=== PATIENT | female | born 1970 | race American Indian/Alaskan Native ===

== ENCOUNTER 2017-10-31 17:22 | Emergency (ER) | payer MEDICAID, OTHER ==
[2017-10-31] MEDS ORDERED: hydrOXYzine HCl 25 MG Tab PO ONE ×2 (17:23→20:45)
[2017-10-31 19:01] VITALS: BP 146/85
[2017-10-31 20:41] LABS: CHLORIDE,CL 101 mmol/L (101-111); SODIUM,NA 136 mmol/L (135-145)
--- NOTE | 2017-10-31 20:53 | EDM.PDOC ---
ED HPI GENERAL MEDICAL PROBLEM - General Chief Complaint: Neuro Symptoms/Deficits Stated Complaint: domenica hughes [id number] Time Seen by Provider: 10/31/17 20:00 Source of Information: Reports: Patient History Limitations: Reports: No Limitations - History of Present Illness INITIAL COMMENTS - FREE TEXT/NARRATIVE: ED with boyfriend, complains of tingling sensation around lips, hands and down anterior portion of legs noted onset last flores. Has been constant but notes does not seem to notice it as much at times. Admits similar symptoms with anxiety. Had been on meds for at anxiety at different times. Recent abstinence from alcohol for past 3 weeks. Has not noted any weakness. No fever or chills. - Related Data Allergies Allergy/AdvReac Type Severity Reaction Status Date / Time No Known Allergies Allergy Verified 10/31/17 17:50 Home Meds: Home Meds Aspirin [Ecotrin] 325 mg PO DAILY 10/31/17 [History] Past Medical History - Past Health History Medical/Surgical History: Denies Medical/Surgical History Social & Family History - Family History Family Medical History: Noncontributory - Tobacco Use Smoking Status *Q: Current Every Day Smoker Years of Tobacco use: 24 Packs/Tins Daily: 1 Second Hand Smoke Exposure: Yes - Caffeine Use Caffeine Use: Reports: Coffee - Alcohol Use Days Per Week of Alcohol Use: 7 Number of Drinks Per Day: 3 Total Drinks Per Week: 21 - Recreational Drug Use Recreational Drug Use: No ED ROS GENERAL - Review of Systems Review Of Systems: ROS reveals no pertinent complaints other than HPI. ED EXAM, NEURO - Physical Exam Exam: See Below Exam Limited By: No Limitations General Appearance: Alert, No Apparent Distress (laughing and talking with friend) Ears: Normal External Exam Nose: Normal Inspection Throat/Mouth: Normal Inspection, Normal Lips (no swelling), Normal Oropharynx, Normal Voice, No Airway Compromise. No: Inflammation Head Exam: Atraumatic, Normocephalic Neck: Normal Inspection, Full Range of Motion Respiratory/Chest: No Respiratory Distress, Wheezing (fine end expiratory bilaterally) Cardiovascular: Normal Peripheral Pulses, Regular Rate, Rhythm, No Edema GI/Abdominal: Normal Bowel Sounds, Soft, Non-Tender Neurological: Alert, Normal Dorsiflexion, CN II-XII Intact, Normal Gait, Normal Reflexes, No Motor/Sensory Deficits, Oriented x 3. No: Abnormal Sensation Extremities: Normal Inspection Psychiatric: Anxious Skin Exam: Warm, Dry, Intact, Normal Color Course - Vital Signs Last Recorded V/S: Last Vital Signs Temp 98.6 F 10/31/17 17:30 Pulse 98 10/31/17 18:57 Resp 20 10/31/17 18:57 BP 146/85 H 10/31/17 18:57 Pulse Ox 99 10/31/17 18:57 - Orders/Labs/Meds Orders: Active Orders 24 hr Category Date Time Status DRUG SCREEN URINE BIORAD [URCHEM] Stat Lab 10/31/17 20:19 Ordered UA W/MICROSCOPIC [URIN] Stat Lab 10/31/17 20:19 Ordered Labs: Laboratory Tests 10/31/17 10/31/17 10/31/17 Range/Units 17:33 20:15 20:15 WBC 11.2 H (5.0-10.0) 10^3/uL RBC 5.34 (4.2-5.4) 10^6/uL Hgb 16.5 H (12.0-16.0) g/dL Hct 48.2 H (37.0-47.0) % MCV 90.3 (80-100) fL MCH 30.9 (27.0-34.0) pg MCHC 34.2 (33.0-35.0) g/dL Plt Count 181 D (150-450) 10^3/uL Neut % (Auto) 78.3 H (42.2-75.2) % Lymph % (Auto) 12.4 L (20.5-50.1) % Norman % (Auto) 8.5 H (2-8) % Eos % (Auto) 0.7 L (1.0-3.0) % Baso % (Auto) 0.1 (0.0-1.0) % Sodium 136 (135-145) mmol/L Potassium 4.2 (3.6-5.0) mmol/L Chloride 101 (101-111) mmol/L Carbon Dioxide 26.0 (21.0-31.0) mmol/L Anion Gap 13.2 BUN 5 L (7-18) mg/dL Creatinine 0.5 L (0.6-1.3) mg/dL Est Cr Clr Drug Dosing 120.11 mL/min Estimated GFR (MDRD) > 60 BUN/Creatinine Ratio 10.00 Glucose 94 (74-105) mg/dL POC Glucose 170 H (70-105) mg/dl Calcium 9.8 (8.4-10.2) mg/dl Magnesium 2.0 (1.8-2.5) mg/dL Total Bilirubin 0.7 (0.2-1.0) mg/dL AST 47 H (10-42) IU/L ALT 45 (10-60) IU/L Alkaline Phosphatase 100 (42-121) IU/L Total Protein 7.7 (6.7-8.2) g/dl Albumin 4.5 (3.2-5.5) g/dl Globulin 3.2 Albumin/Globulin Ratio 1.41 Urine Color (YELLOW) Urine Appearance (CLEAR) Urine pH (5.0-9.0) Ur Specific [place] (1.005-1.030) Urine Protein (NEGATIVE) Urine Glucose (UA) (NEGATIVE) Urine Ketones (NEGATIVE) Urine Occult Blood (NEGATIVE) Urine Nitrite (NEGATIVE) Urine Bilirubin (NEGATIVE) Urine Urobilinogen (0.2-1.0) mg/dL Ur Leukocyte Esterase (NEGATIVE) Urine RBC /HPF Urine WBC (0-5/HPF) /HPF Ur Epithelial Cells /HPF Urine Bacteria (0-FEW/HPF) /HPF Urine Opiates Screen (NEGATIVE) Ur Oxycodone Screen (NEGATIVE) Urine Methadone Screen (NEGATIVE) Ur Barbiturates Screen (NEGATIVE) U Tricyclic Antidepress (NEGATIVE) Ur Phencyclidine Scrn (NEGATIVE) Ur Amphetamine Screen (NEGATIVE) U Methamphetamines Scrn (NEGATIVE) Urine MDMA Screen (NEGATIVE) U Benzodiazepines Scrn (NEGATIVE) Urine Cocaine Screen (NEGATIVE) U Marijuana (THC) Screen (NEGATIVE) 10/31/17 10/31/17 Range/Units 20:19 20:19 WBC (5.0-10.0) 10^3/uL RBC (4.2-5.4) 10^6/uL Hgb (12.0-16.0) g/dL Hct (37.0-47.0) % MCV (80-100) fL MCH (27.0-34.0) pg MCHC (33.0-35.0) g/dL Plt Count (150-450) 10^3/uL Neut % (Auto) (42.2-75.2) % Lymph % (Auto) (20.5-50.1) % Norman % (Auto) (2-8) % Eos % (Auto) (1.0-3.0) % Baso % (Auto) (0.0-1.0) % Sodium (135-145) mmol/L Potassium (3.6-5.0) mmol/L Chloride (101-111) mmol/L Carbon Dioxide (21.0-31.0) mmol/L Anion Gap BUN (7-18) mg/dL Creatinine (0.6-1.3) mg/dL Est Cr Clr Drug Dosing mL/min Estimated GFR (MDRD) BUN/Creatinine Ratio Glucose (74-105) mg/dL POC Glucose (70-105) mg/dl Calcium (8.4-10.2) mg/dl Magnesium (1.8-2.5) mg/dL Total Bilirubin (0.2-1.0) mg/dL AST (10-42) IU/L ALT (10-60) IU/L Alkaline Phosphatase (42-121) IU/L Total Protein (6.7-8.2) g/dl Albumin (3.2-5.5) g/dl Globulin Albumin/Globulin Ratio Urine Color Light yellow (YELLOW) Urine Appearance Clear (CLEAR) Urine pH 7.0 (5.0-9.0) Ur Specific [place] <= 1.005 (1.005-1.030) Urine Protein Negative (NEGATIVE) Urine Glucose (UA) Negative (NEGATIVE) Urine Ketones Negative (NEGATIVE) Urine Occult Blood Negative (NEGATIVE) Urine Nitrite Negative (NEGATIVE) Urine Bilirubin Negative (NEGATIVE) Urine Urobilinogen 0.2 (0.2-1.0) mg/dL Ur Leukocyte Esterase Negative (NEGATIVE) Urine RBC 0-5 /HPF Urine WBC 0-5 (0-5/HPF) /HPF Ur Epithelial Cells Few /HPF Urine Bacteria Few (0-FEW/HPF) /HPF Urine Opiates Screen Negative (NEGATIVE) Ur Oxycodone Screen Negative (NEGATIVE) Urine Methadone Screen Negative (NEGATIVE) Ur Barbiturates Screen Negative (NEGATIVE) U Tricyclic Antidepress Negative (NEGATIVE) Ur Phencyclidine Scrn Negative (NEGATIVE) Ur Amphetamine Screen Negative (NEGATIVE) U Methamphetamines Scrn Negative (NEGATIVE) Urine MDMA Screen Negative (NEGATIVE) U Benzodiazepines Scrn Negative (NEGATIVE) Urine Cocaine Screen Negative (NEGATIVE) U Marijuana (THC) Screen Negative (NEGATIVE) Meds: Medications Discontinued Medications Generic Name Dose Route Start Last Admin Trade Name Coral PRN Reason Stop Dose Admin Hydroxyzine HCl 25 mg 10/31/17 20:45 10/31/17 20:54 Atarax PO 10/31/17 20:46 25 mg ONETIME ONE Administration Hydroxyzine HCl Confirm 10/31/17 21:00 10/31/17 21:04 Atarax Administered 10/31/17 21:01 Not Given Dose 100 mg .ROUTE .STK-MED ONE Departure - Departure Time of Disposition: 20:50 Disposition: Home, Self-Care 01 Condition: Good Clinical Impression: Anxiety - Discharge Information Instructions: Generalized Anxiety Disorder, Adult Forms: ED Department Discharge Additional Instructions: rest , light activity hydroxyzine 25mg one every 6 hours as needed #4 follow up if symptoms worsen - My Orders Last 24 Hours: My Active Orders 10/31/17 20:19 DRUG SCREEN URINE BIORAD [URCHEM] Stat UA W/MICROSCOPIC [URIN] Stat - Assessment/Plan Last 24 Hours: My Active Orders 10/31/17 20:19 DRUG SCREEN URINE BIORAD [URCHEM] Stat UA W/MICROSCOPIC [URIN] Stat
[2017-10-31] MEDS ORDERED: hydrOXYzine HCl 25 MG Tab ONE (21:00)
== END 2017-10-31 21:04 | disposition home or self-care (01) ==
LOC: DL.ED 17:22
DX: F41.9 Anxiety disorder, unspecified (principal); F17.210 Nicotine dependence, cigarettes, uncomplicated; Z79.82 Long term (current) use of aspirin
CPT/HCPCS: 36415; 80053; 80305; 81001; 82962; 83735; 85025; 99284; A9270

== ENCOUNTER 2018-11-08 20:44 | Emergency (ER) | payer SELFPAY ==
[2018-11-08 21:09] VITALS: BP 118/76
[2018-11-08] MEDS ORDERED: Diphtheria,Pertussis(Acell),Tetanus Vaccine 0.5 ML SDV IM ONE (21:49)
[2018-11-08] MEDS ORDERED: Lidocaine 1% 30 ML SDV INJECT ONE (21:49)
--- NOTE | 2018-11-08 21:54 | EDM.PDOC ---
ED HPI GENERAL MEDICAL PROBLEM - General Chief Complaint: Laceration Stated Complaint: CUT TO LEFT RING FINGER Time Seen by Provider: 11/08/18 21:50 Source of Information: Reports: Patient History Limitations: Reports: No Limitations - History of Present Illness INITIAL COMMENTS - FREE TEXT/NARRATIVE: cut on dresser BUTCHER HEAD Left Hand Pain Score (Numeric/FACES): 5 - Related Data Allergies Allergy/AdvReac Type Severity Reaction Status Date / Time No Known Allergies Allergy Verified 11/08/18 21:05 Home Meds: Home Meds . [No Known Home Meds] 11/08/18 [History] Past Medical History - Past Health History Medical/Surgical History: Denies Medical/Surgical History [employer] History: Reports: Psychiatric History: Reports: Anxiety - Past Surgical History GI Surgical History: Reports: Cholecystectomy Social & Family History - Family History Family Medical History: Noncontributory - Tobacco Use Smoking Status *Q: Current Every Day Smoker Years of Tobacco use: 30 Packs/Tins Daily: 2 - Caffeine Use Caffeine Use: Reports: Coffee - Recreational Drug Use Recreational Drug Use: No ED ROS GENERAL - Review of Systems Review Of Systems: ROS reveals no pertinent complaints other than HPI. ED EXAM, SKIN/RASH Exam: See Below Exam Limited By: No Limitations General Appearance: Alert, WD/WN, No Apparent Distress Ears: Hearing Grossly Normal Throat/Mouth: Normal Voice, No Airway Compromise Head: Atraumatic Neck: Non-Tender, Full Range of Motion Respiratory/Chest: No Respiratory Distress Cardiovascular: Regular Rate, Rhythm GI/Abdominal: Soft, Non-Tender Extremities: Other (left 4th pad lac) Neurological: Alert, Oriented, Normal Cognition, Normal Gait, No Motor/Sensory Deficits Psychiatric: Normal Affect, Normal Mood Skin: Warm, Dry, Normal Color Location, Skin: Upper Extremity, Right Lymphatic: No Adenopathy ED SKIN PROCEDURES - Laceration/Wound Repair Left Digit - 4th (Ring) Lac/Wound length In cm: 1.5 (pad of left 4th finger) Appearance: Subcutaneous, Irregular, Clean Distal NVT: Neuro & Vascular Intact, No Tendon Injury Local Anesthesia - Lidocaine (Xylocaine): 1% Plain Local Anesthetic Volume: 5cc Skin Prep: Chlorhexidine (Hibiciens) Saline Irrigation (cc's): 20 Exploration/Debridement/Repair: Wound Explored, In a Bloodless Field, No Foreign Material Found Closed with: Sutures Suture Size: 4-0 Suture Type: Nylon, Interrupted Sterile Dressing Applied: Provider Tetanus Status Addressed: Yes Complications: No Course - Vital Signs Last Recorded V/S: Last Vital Signs Temp 36.1 C 11/08/18 21:06 Pulse 69 11/08/18 21:06 Resp 16 11/08/18 21:06 BP 118/76 11/08/18 21:06 Pulse Ox 99 11/08/18 21:06 - Orders/Labs/Meds Orders: Active Orders 24 hr Category Date Time Status Vaccines to be Administered [RC] PER UNIT ROUTINE Care 11/08/18 21:50 Active Meds: Medications Discontinued Medications Generic Name Dose Route Start Last Admin Trade Name Freq PRN Reason Stop Dose Admin Diphtheria/Tetanus/Acell Pertussis 0.5 ml 11/08/18 21:49 11/08/18 22:02 Adacel IM 11/08/18 21:50 0.5 ml .ONCE ONE Administration Lidocaine HCl 30 ml 11/08/18 21:49 11/08/18 22:02 Xylocaine-Mpf 1% INJECT 11/08/18 21:50 30 ml ONETIME ONE Administration Departure - Departure Time of Disposition: 22:12 Disposition: Home, Self-Care 01 Condition: Good Clinical Impression: Finger laceration Qualifiers: Encounter type: initial encounter Finger: ring finger Damage to nail status: without damage Foreign body presence: without foreign body Laterality: left Qualified Code(s): S61.215A - Laceration without foreign body of left ring finger without damage to nail, initial encounter - Discharge Information Instructions: Sutured Wound Care, [facility] Forms: ED Department Discharge Additional Instructions: 1) keep wound clean dry covered 2) wound check if looks infected 3) suture removal 10 days - My Orders Last 24 Hours: My Active Orders 11/08/18 21:50 Vaccines to be Administered [RC] PER UNIT ROUTINE - Assessment/Plan Last 24 Hours: My Active Orders 11/08/18 21:50 Vaccines to be Administered [RC] PER UNIT ROUTINE
== END 2018-11-08 22:25 | disposition home or self-care (01) ==
LOC: DL.ED 20:44
DX: S61.215A Laceration without foreign body of left ring finger without damage to nail, initial encounter (principal); F17.210 Nicotine dependence, cigarettes, uncomplicated; W26.8XXA Contact with other sharp object(s), not elsewhere classified, initial encounter; Z23 Encounter for immunization
CPT/HCPCS: 12001; 90471; 90715; 99282; J2001

== ENCOUNTER 2021-02-25 09:38 | Inpatient (IN) | payer MEDICAID ==
[2021-02-25] MEDS ORDERED: Sodium Chloride 0.9% 10 ML Syringe FLUSH PRN ×2 (09:49→11:57)
[2021-02-25] MEDS ORDERED: Ondansetron 4 MG/2 ML SDV IV ONE (09:51)
[2021-02-25] MEDS ORDERED: MVI, Adult with Vitamin K 10 ML, Thiamine 100 MG, Folic Acid 1 MG in Lactated Ringers 1... IV ONE ×4 (09:51)
[2021-02-25] MEDS ORDERED: LORazepam 2 MG/ML SDV IVPUSH ONE ×2 (09:51→10:54)
[2021-02-25 10:18] LABS: AMPHETAMINES,URINE NEGATIVE (NEGATIVE); BARBITURATES,URINE NEGATIVE (NEGATIVE); BENZODIAZEPINE,URINE NEGATIVE (NEGATIVE); MDMA (ECSTASY), URINE NEGATIVE (NEGATIVE); METHADONE,URINE NEGATIVE (NEGATIVE); METHAMPHETAMINES,URINE NEGATIVE (NEGATIVE); OPIATES,URINE NEGATIVE (NEGATIVE); OXYCODONE,URINE NEGATIVE (NEGATIVE); PHENCYCLIDINE,URINE NEGATIVE (NEGATIVE); TCA,URINE NEGATIVE (NEGATIVE)
[2021-02-25 10:29] LABS: PTT,PARTIAL THROMBOPLSTIN TIME 25.6 SEC (22.0-34.0)
[2021-02-25 10:31] LABS: ANION GAP 14.4 mEq/L (7-13); CHLORIDE,CL 99 mmol/L (98-107); SODIUM,NA 137 mmol/L (136-145)
[2021-02-25 10:40] LABS: HEMOGLOBIN A1C 5.1 % (<5.7)
[2021-02-25 10:52] LABS: CORONAVIRUS COVID-19 NAA NEGATIVE (NEGATIVE)
[2021-02-25] MEDS ORDERED: Pantoprazole 40 MG Vial IVPUSH ONE (10:53)
--- NOTE | 2021-02-25 11:09 | EDM.PDOC ---
Scribed by Terese Navarro 02/25/21 1033 for Rahat Carpio MD ED HPI GENERAL MEDICAL PROBLEM - General Chief Complaint: General Stated Complaint: AMBULANCE Time Seen by Provider: 02/25/21 09:39 Source of Information: Reports: Patient, EMS, EMS Notes Reviewed, RN, RN Notes Reviewed History Limitations: Reports: No Limitations - History of Present Illness INITIAL COMMENTS - FREE TEXT/NARRATIVE: Patient arrives to ED by [facility] with complaint of shakiness, nausea and alcohol withdrawal. She has chronically drank an 8 pack of beer every morning and an 8 pack every evening. Last night she decided to stop alcohol. Awoke this morning with the above symptoms. She has had alcohol withdrawal at least once in the past and went to treatment several years ago. Denies history of withdrawal seizures. Patient also states she has head lice, which she has not gotten around to treating yet. Onset: Today Duration: Constant Location: Reports: Generalized Quality: Reports: Ache Severity: Moderate Improves with: Reports: None Worsens with: Reports: None Associated Symptoms: Reports: No Other Symptoms - Related Data Allergies Allergy/AdvReac Type Severity Reaction Status Date / Time No Known Allergies Allergy Verified 11/08/18 21:05 Home Meds: Home Meds . 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 ED EXAM, GENERAL - Physical Exam Exam: See Below Exam Limited By: No Limitations General Appearance: Alert, WD/WN, No Apparent Distress Eye Exam: Bilateral Eye: EOMI, Normal Inspection, PERRL Nose: Normal Inspection, Normal Mucosa, No Blood Throat/Mouth: Normal Lips, Normal Voice, No Airway Compromise Head: Atraumatic, Normocephalic, Other (Visible active head lice) Neck: Normal Inspection, Supple, Non-Tender, Full Range of Motion Respiratory/Chest: No Respiratory Distress, Lungs Clear, Normal Breath Sounds, No Accessory Muscle Use, Chest Non-Tender Cardiovascular: Regular Rate, Rhythm, No Edema, Tachycardia GI/Abdominal: Normal Bowel Sounds, Soft, Non-Tender, Hepatomegaly. No: Guarding, Rigid, Rebound Back Exam: Normal Inspection Extremities: Normal Inspection Neurological: Alert, Oriented, Normal Cognition, No Motor/Sensory Deficits, Other (Tremor) Psychiatric: Normal Mood Skin Exam: Warm, Dry, Intact, Normal Color, No Rash Course - Vital Signs Last Recorded V/S: Last Vital Signs Temp 99.1 F 02/25/21 10:25 Pulse 112 H 02/25/21 10:25 Resp 18 02/25/21 10:25 BP 157/139 H 02/25/21 10:25 Pulse Ox 99 02/25/21 10:25 - Orders/Labs/Meds Orders: Active Orders 24 hr Category Date Time Status Peripheral IV Care [RC] . DIRECTED Care 02/25/21 09:49 Active Sodium Chloride 0.9% [Saline Flush] Med 02/25/21 09:49 Active 10 ml FLUSH ASDIRECTED PRN Peripheral IV Insertion Adult [OM.PC] Stat Oth 02/25/21 09:49 Ordered Medication Orders Sodium Chloride (Sodium Chloride 0.9% 10 Ml Syringe) 10 ml FLUSH ASDIRECTED PRN PRN Reason: Keep Vein Open Last Admin: 02/25/21 10:18 Dose: 10 ml Documented by: QUIN Labs: Laboratory Tests 02/25/21 02/25/21 02/25/21 Range/Units 09:53 09:53 09:53 WBC (5.0-10.0) 10^3/uL RBC (4.2-5.4) 10^6/uL Hgb (12.0-16.0) g/dL Hct (37.0-47.0) % MCV (80-100) fL MCH (27.0-34.0) pg MCHC (33.0-35.0) g/dL Plt Count (150-450) 10^3/uL Neut % (Auto) (42.2-75.2) % Lymph % (Auto) (20.5-50.1) % [place] % (Auto) (2-8) % Eos % (Auto) (1.0-3.0) % Baso % (Auto) (0.0-1.0) % PT (9.0-12.0) SEC INR (0.9-1.2) APTT (22.0-34.0) SEC Sodium (136-145) mmol/L Potassium (3.5-5.1) mmol/L Chloride (98-107) mmol/L Carbon Dioxide (21-32) mmol/L Anion Gap (7-13) mEq/L BUN (7-18) mg/dL Creatinine (0.55-1.02) mg/dL Est Cr Clr Drug Dosing Estimated GFR (MDRD) BUN/Creatinine Ratio (No establ ref range) Glucose (70-99) mg/dL Hemoglobin A1c (<5.7) % Calcium (8.5-10.1) mg/dL Magnesium (1.8-2.4) mg/dL Total Bilirubin (0.2-1.0) mg/dL AST (15-37) U/L ALT (14-59) U/L Alkaline Phosphatase (46-116) U/L Total Protein (6.4-8.2) g/dL Albumin (3.4-5.0) g/dL Globulin Albumin/Globulin Ratio Amylase (25-115) U/L Lipase (73-393) U/L Urine Color Yellow (YELLOW) Urine Appearance Clear (CLEAR) Urine pH 6.0 (5.0-9.0) Ur Specific [place] 1.025 (1.005-1.030) Urine Protein Negative (NEGATIVE) Urine Glucose (UA) 500 H (NEGATIVE) Urine Ketones Negative (NEGATIVE) Urine Occult Blood Trace-intact H (NEGATIVE) Urine Nitrite Negative (NEGATIVE) Urine Bilirubin Negative (NEGATIVE) Urine Urobilinogen 0.2 (0.2-1.0) mg/dL Ur Leukocyte Esterase Negative (NEGATIVE) U Hyaline Cast (Auto) Few Urine RBC 0-5 (0-5) /HPF Urine WBC 0-5 (0-5/HPF) /HPF Ur Epithelial Cells Many H (NOT SEEN) /HPF Amorphous Sediment Moderate H (NOT SEEN) /HPF Urine Bacteria Few (0-FEW/HPF) /HPF Urine Mucus Few H (NOT SEEN) /LPF Urine HCG, Qual Negative Urine Opiates Screen Negative (NEGATIVE) Ur Oxycodone Screen Negative (NEGATIVE) Urine Methadone Screen Negative (NEGATIVE) Ur Barbiturates Screen Negative (NEGATIVE) U Tricyclic Antidepress Negative (NEGATIVE) Ur Phencyclidine Scrn Negative (NEGATIVE) Ur Amphetamine Screen Negative (NEGATIVE) U Methamphetamines Scrn Negative (NEGATIVE) Urine MDMA Screen Negative (NEGATIVE) U Benzodiazepines Scrn Negative (NEGATIVE) Urine Cocaine Screen Negative (NEGATIVE) U Marijuana (THC) Screen Negative (NEGATIVE) Ethyl Alcohol (0) mg/dL Influenza Type A RNA (NEGATIVE) Influenza Type B RNA (NEGATIVE) SARS-CoV-2 RNA (NAKUL) (NEGATIVE) 02/25/21 02/25/21 02/25/21 Range/Units 09:57 10:03 10:03 WBC 14.2 H (5.0-10.0) 10^3/uL RBC 5.30 (4.2-5.4) 10^6/uL Hgb 16.5 H (12.0-16.0) g/dL Hct 49.2 H (37.0-47.0) % MCV 92.8 (80-100) fL MCH 31.1 (27.0-34.0) pg MCHC 33.5 (33.0-35.0) g/dL Plt Count 241 (150-450) 10^3/uL Neut % (Auto) 86.7 H (42.2-75.2) % Lymph % (Auto) 3.1 L (20.5-50.1) % [place] % (Auto) 9.2 H (2-8) % Eos % (Auto) 0.4 L (1.0-3.0) % Baso % (Auto) 0.6 (0.0-1.0) % PT 9.8 (9.0-12.0) SEC INR 1.0 (0.9-1.2) APTT 25.6 (22.0-34.0) SEC Sodium (136-145) mmol/L Potassium (3.5-5.1) mmol/L Chloride (98-107) mmol/L Carbon Dioxide (21-32) mmol/L Anion Gap (7-13) mEq/L BUN (7-18) mg/dL Creatinine (0.55-1.02) mg/dL Est Cr Clr Drug Dosing Estimated GFR (MDRD) BUN/Creatinine Ratio (No establ ref range) Glucose (70-99) mg/dL Hemoglobin A1c (<5.7) % Calcium (8.5-10.1) mg/dL Magnesium (1.8-2.4) mg/dL Total Bilirubin (0.2-1.0) mg/dL AST (15-37) U/L ALT (14-59) U/L Alkaline Phosphatase (46-116) U/L Total Protein (6.4-8.2) g/dL Albumin (3.4-5.0) g/dL Globulin Albumin/Globulin Ratio Amylase (25-115) U/L Lipase (73-393) U/L Urine Color (YELLOW) Urine Appearance (CLEAR) Urine pH (5.0-9.0) Ur Specific [place] (1.005-1.030) Urine Protein (NEGATIVE) Urine Glucose (UA) (NEGATIVE) Urine Ketones (NEGATIVE) Urine Occult Blood (NEGATIVE) Urine Nitrite (NEGATIVE) Urine Bilirubin (NEGATIVE) Urine Urobilinogen (0.2-1.0) mg/dL Ur Leukocyte Esterase (NEGATIVE) U Hyaline Cast (Auto) Urine RBC (0-5) /HPF Urine WBC (0-5/HPF) /HPF Ur Epithelial Cells (NOT SEEN) /HPF Amorphous Sediment (NOT SEEN) /HPF Urine Bacteria (0-FEW/HPF) /HPF Urine Mucus (NOT SEEN) /LPF Urine HCG, Qual Urine Opiates Screen (NEGATIVE) Ur Oxycodone Screen (NEGATIVE) Urine Methadone Screen (NEGATIVE) Ur Barbiturates Screen (NEGATIVE) U Tricyclic Antidepress (NEGATIVE) Ur Phencyclidine Scrn (NEGATIVE) Ur Amphetamine Screen (NEGATIVE) U Methamphetamines Scrn (NEGATIVE) Urine MDMA Screen (NEGATIVE) U Benzodiazepines Scrn (NEGATIVE) Urine Cocaine Screen (NEGATIVE) U Marijuana (THC) Screen (NEGATIVE) Ethyl Alcohol (0) mg/dL Influenza Type A RNA Negative (NEGATIVE) Influenza Type B RNA Negative (NEGATIVE) SARS-CoV-2 RNA (NAKUL) Negative (NEGATIVE) 02/25/21 02/25/21 Range/Units 10:03 10:03 WBC (5.0-10.0) 10^3/uL RBC (4.2-5.4) 10^6/uL Hgb (12.0-16.0) g/dL Hct (37.0-47.0) % MCV (80-100) fL MCH (27.0-34.0) pg MCHC (33.0-35.0) g/dL Plt Count (150-450) 10^3/uL Neut % (Auto) (42.2-75.2) % Lymph % (Auto) (20.5-50.1) % [place] % (Auto) (2-8) % Eos % (Auto) (1.0-3.0) % Baso % (Auto) (0.0-1.0) % PT (9.0-12.0) SEC INR (0.9-1.2) APTT (22.0-34.0) SEC Sodium 137 (136-145) mmol/L Potassium 4.4 (3.5-5.1) mmol/L Chloride 99 (98-107) mmol/L Carbon Dioxide 28 (21-32) mmol/L Anion Gap 14.4 H (7-13) mEq/L BUN 3 L (7-18) mg/dL Creatinine 0.65 (0.55-1.02) mg/dL Est Cr Clr Drug Dosing TNP Estimated GFR (MDRD) > 60 BUN/Creatinine Ratio 4.6 (No establ ref range) Glucose 266 H (70-99) mg/dL Hemoglobin A1c 5.1 (<5.7) % Calcium 8.9 (8.5-10.1) mg/dL Magnesium 1.6 L (1.8-2.4) mg/dL Total Bilirubin 0.5 (0.2-1.0) mg/dL AST 110 H (15-37) U/L ALT 111 H (14-59) U/L Alkaline Phosphatase 191 H (46-116) U/L Total Protein 7.5 (6.4-8.2) g/dL Albumin 3.3 L (3.4-5.0) g/dL Globulin 4.2 Albumin/Globulin Ratio 0.79 Amylase 16 L (25-115) U/L Lipase 141 (73-393) U/L Urine Color (YELLOW) Urine Appearance (CLEAR) Urine pH (5.0-9.0) Ur Specific [place] (1.005-1.030) Urine Protein (NEGATIVE) Urine Glucose (UA) (NEGATIVE) Urine Ketones (NEGATIVE) Urine Occult Blood (NEGATIVE) Urine Nitrite (NEGATIVE) Urine Bilirubin (NEGATIVE) Urine Urobilinogen (0.2-1.0) mg/dL Ur Leukocyte Esterase (NEGATIVE) U Hyaline Cast (Auto) Urine RBC (0-5) /HPF Urine WBC (0-5/HPF) /HPF Ur Epithelial Cells (NOT SEEN) /HPF Amorphous Sediment (NOT SEEN) /HPF Urine Bacteria (0-FEW/HPF) /HPF Urine Mucus (NOT SEEN) /LPF Urine HCG, Qual Urine Opiates Screen (NEGATIVE) Ur Oxycodone Screen (NEGATIVE) Urine Methadone Screen (NEGATIVE) Ur Barbiturates Screen (NEGATIVE) U Tricyclic Antidepress (NEGATIVE) Ur Phencyclidine Scrn (NEGATIVE) Ur Amphetamine Screen (NEGATIVE) U Methamphetamines Scrn (NEGATIVE) Urine MDMA Screen (NEGATIVE) U Benzodiazepines Scrn (NEGATIVE) Urine Cocaine Screen (NEGATIVE) U Marijuana (THC) Screen (NEGATIVE) Ethyl Alcohol < 3 (0) mg/dL Influenza Type A RNA (NEGATIVE) Influenza Type B RNA (NEGATIVE) SARS-CoV-2 RNA (NAKUL) (NEGATIVE) Meds: Medications Generic Name Dose Route Start Last Admin Trade Name Freq PRN Reason Stop Dose Admin Sodium Chloride 10 ml 02/25/21 09:49 02/25/21 10:18 Sodium Chloride 0.9% 10 Ml Syringe FLUSH 10 ml ASDIRECTED PRN Administration Keep Vein Open Discontinued Medications Generic Name Dose Route Start Last Admin Trade Name Freq PRN Reason Stop Dose Admin Multivitamins/Minerals 10 ml/ 1,011.2 mls @ 999 mls/hr 02/25/21 09:51 02/25/21 10:13 Thiamine HCl 100 mg/ Folic IV 02/25/21 10:51 999 mls/hr Acid 1 mg/ Lactated Ringer's .BOLUS ONE Administration Lorazepam 2 mg 02/25/21 09:51 02/25/21 10:13 Lorazepam 2 Mg/Ml Sdv IVPUSH 02/25/21 09:52 2 mg ONETIME ONE Administration Lorazepam 2 mg 02/25/21 10:54 02/25/21 11:05 Lorazepam 2 Mg/Ml Sdv IVPUSH 02/25/21 10:55 2 mg ONETIME ONE Administration Ondansetron HCl 4 mg 02/25/21 09:51 02/25/21 10:13 Ondansetron 4 Mg/2 Ml Sdv IV 02/25/21 09:52 4 mg ONETIME ONE Administration Pantoprazole Sodium 40 mg 02/25/21 10:53 02/25/21 11:06 Pantoprazole 40 Mg Vial IVPUSH 02/25/21 10:54 40 mg ONETIME ONE Administration Departure - Departure Time of Disposition: 11:00 (admitted to Dr. Cisneros) Disposition: Admitted As Inpatient 66 Condition: Good Clinical Impression: Chronic alcohol abuse, Hyperglycemia, Head lice Alcohol withdrawal Qualifiers: Complication of substance-induced condition: uncomplicated Qualified Code(s): F10.230 - Alcohol dependence with withdrawal, uncomplicated Alcoholic hepatitis Qualifiers: Ascites presence: unspecified Qualified Code(s): K70.10 - Alcoholic hepatitis without ascites - Discharge Information *PRESCRIPTION DRUG MONITORING PROGRAM REVIEWED*: Not Applicable *COPY OF PRESCRIPTION DRUG MONITORING REPORT IN PATIENT JESSICA: Not Applicable Forms: ED Department Discharge Sepsis Event Note (ED) - Focused Exam Vital Signs: Vital Signs Temp Pulse Resp BP Pulse Ox 02/25/21 10:25 99.1 F 112 H 18 157/139 H 99 - My Orders Last 24 Hours: My Active Orders 02/25/21 09:49 Peripheral IV Care [RC] . DIRECTED Sodium Chloride 0.9% [Saline Flush] 10 ml FLUSH ASDIRECTED PRN Peripheral IV Insertion Adult [OM.PC] Stat - Assessment/Plan Last 24 Hours: My Active Orders 02/25/21 09:49 Peripheral IV Care [RC] . DIRECTED Sodium Chloride 0.9% [Saline Flush] 10 ml FLUSH ASDIRECTED PRN Peripheral IV Insertion Adult [OM.PC] Stat I have read and agree with the documentation that has been completed regarding this visit. By signing this record, I attest that the documentation was completed in my physical presence and is an accurate record of the encounter.
[2021-02-25] MEDS ORDERED: Ondansetron 4 MG/2 ML SDV IVPUSH PRN (11:57)
[2021-02-25] MEDS ORDERED: Magnesium Sulfate/Water 2 GM in Premix Bag 1 BAG IV ONE (12:00)
[2021-02-25] MEDS ORDERED: Permethrin 59 ML Bottle TOP ONE (12:00)
[2021-02-25] MEDS ORDERED: Nicotine 14 MG/24 Hr Patch TRDERM PRN (12:02)
--- NOTE | 2021-02-25 12:07 | PCM.SN.2 ---
- Free Text/Narrative Note: START OF DOCTOR EMAMIS HISTORY AND PHYSICAL / CONSULTATION NOTE Chief Complaint: "I was having the shakes" History of Present Illness: The patient is a 50-year-old female who presents chief plaint of alcohol withdrawal. She states that she had her last alcoholic beverage at approximate 10 PM on the evening of 02/24/2021. She states for the last month she has been drinking one 8 pack of beer in the morning and another 8 pack of beer at night. She states she started drinking this much 1 month prior to hospitalization. She claims prior to that, that she had no history of alcohol abuse. Upon further questioning she indicates that she started drinking this quantity due to "hang out with the wrong people". On the day of hospitalization she admits to rigors, nausea and an episode of emesis. She denies fever, cough, wheeze, abdominal pain, diarrhea, myalgia, chest pain, dyspnea, or any other constitutional complaints. She presents for further evaluation Surgical History: Cholecystectomy Family History: Cancer Social History: Tobacco: Active smoker Alcohol: Since approximately 01/18/2021, the patient has been drinking an 8 pack of beer in the morning and an 8 pack of beer at night Caffeine: Coffee Drugs: Never Allergies: No known drug allergies full Code Status: Pertinent Laboratory Results / Pertinent Radiology Results / Pertinent Diagnostic Results / Pertinent Vital Signs: Blood pressure 157/39, pulse 112, respirations 18, temperature 9.1 degrees, 9 9% room air, glucose 166, magnesium 1.6, alkaline phosphatase 191, AST 110, ALT 111, white blood count 14.2 Physical Examination: General: -Alert -No acute distress -No dyspnea -No tachypnea -Mildly tremulous Head: -Atraumatic -Normocephalic Eyes: -Pupils equally round and reactive to light and accommodation -Extraocular muscles intact Neurological: -Cranial nerves II-XII intact Neck: -No jugular venous distention -No thyromegaly -No cervical lymphadenopathy Heart: -iRegular rate -Regular rhythm -No murmurs -No gallops -No rubs Lungs: -No wheeze -No rhonchi -No rales Abdomen: -Normal bowel sounds in all four quadrants -No rebound -No guarding -No tenderness Extremities: -2/4 pulse in all four extremities -No clubbing -No cyanosis -No edema -No calf tenderness present bilaterally -Negative Homans sign bilaterally Musculoskeletal: -5/5 bilateral upper extremity strength -5/5 bilateral lower extremity strength -Sensorium of bilateral upper extremities are equal and intact -Sensorium of bilateral lower extremities are equal and intact Additional Details / Additional Findings / Exceptions / Miscellaneous: Assessment / Plan: Alcohol abuse with alcohol withdrawal. Seizure precautions. Case management referral for alcohol rehabilitation. IV as needed Ativan per [facility] protocol plus IV normal saline 100 mL/h Alcoholic hepatitis. Will monitor LFTs periodically with CMP Erythrocytosis. Will monitor hemoglobin level intermittently. IV normal saline 100 mL/h Anxiety Hypomagnesemia. Will monitor magnesium levels intermittently and supplement as necessary Lice. Permethrin 1% lotion to be applied for 10 minutes x 1 dose which will be applied on 02/25/2021 Hyperglycemia. Likely acute phase reaction. Hemoglobin A1c is 5.1. Will monitor glucose levels intermittently Elevated blood pressure. This may be sequelae of alcohol withdrawal. Will monitor blood pressure periodically and initiate antihypertensives as clinically indicated Smoker. Patient becomes regarding smoking cessation Asthma DVT prophylaxis. Lovenox 40 mg subcutaneously daily Disposition: Anticipate discharge in 24 to 48 hours however this will be entirely dependent upon patient's course of alcohol withdrawal. I will discuss the patient's case with case management/social work for referral for alcohol rehabilitation upon discharge END OF DOCTOR EMAMIS HISTORY AND PHYSICAL / CONSULTATION NOTE
[2021-02-25] MEDS: Sodium Chloride 0.9% 1,000 ML IV SCH (12:26)
[2021-02-25] MEDS: LORazepam 2 MG/ML SDV IV PRN ×2 (13:40→19:28)
[2021-02-25] MEDS ORDERED: Check Patch TRDERM SCH (21:00)
[2021-02-26] MEDS: Sodium Chloride 0.9% 1,000 ML IV SCH (02:23)
[2021-02-26 06:43] LABS: ANION GAP 10.3 mEq/L (7-13); CHLORIDE,CL 106 mmol/L (98-107); SODIUM,NA 142 mmol/L (136-145)
[2021-02-26] MEDS ORDERED: Potassium Chloride 10 MEQ Tab.ER PO ONE (07:05)
--- NOTE | 2021-02-26 07:11 | PCM.SN.2 ---
- Free Text/Narrative Note: START OF DOCTOR EMAMIS PROGRESS NOTE Subjective: Overnight the patient indicates that she had a single episode of rigors however aside from this she endorses no complaints. She denies fever, nausea, vomiting, cough, wheeze, abdominal pain, chest pain, dyspnea, or any other constitutional complaints. I was notified by the nursing staff that the patient required only a single dose of Ativan overnight at approximately 7 PM on February 25, 2021. I explained to the patient her current medical condition and plan of care and I have answered all of her questions Objective: General: -Alert -No acute distress -No dyspnea -No tachypnea Heart: -Regular rate -Regular rhythm -No murmurs -No gallops -No rubs Lungs: -No wheeze -No rhonchi -No rales Abdomen: -Normal bowel sounds in all four quadrants -No rebound -No guarding -No tenderness Extremities: -2/4 pulse in all four extremities -No clubbing -No cyanosis -No edema Additional Details / Additional Findings / Exceptions / Miscellaneous: The patient exhibits no tremulousness Pertinent Laboratory Results / Pertinent Radiology Results / Pertinent [place] gnostic Results / Pertinent Vital Signs: Vital signs stable. White blood cell count 10.2, potassium 3.3, AST 98, ALT 98, alkaline phosphatase 135 Assessment / Plan: Alcohol abuse with alcohol withdrawal. Seizure precautions. Case management referral for alcohol rehabilitation. IV as needed Ativan per [facility] protocol Alcoholic hepatitis. Will monitor LFTs periodically with CMP Erythrocytosis. Will monitor hemoglobin level intermittently. Hypokalemia. Will monitor potassium levels intermittently and supplement as necessary Anxiety Hypomagnesemia. Will monitor magnesium levels intermittently and supplement as necessary Lice. Permethrin 1% lotion to be applied for 10 minutes x 1 dose which will be applied on 02/25/2021 Hyperglycemia. Likely acute phase reaction. Hemoglobin A1c is 5.1. Will monitor glucose levels intermittently Elevated blood pressure. This may be sequelae of alcohol withdrawal. Will monitor blood pressure periodically and initiate antihypertensives as clinically indicated Smoker. Patient becomes regarding smoking cessation Asthma DVT prophylaxis. Lovenox 40 mg subcutaneously daily Disposition: The patient may be a candidate for discharge on this day February 26, 2021 given that she has required very little Ativan. I will discuss the patient's case with case management for referral for alcohol rehabilitation END OF DOCTOR EMAMIS PROGRESS NOTE
[2021-02-26] MEDS ORDERED: Enoxaparin 40 MG/0.4 ML Syringe SUBCUT SCH (09:00)
--- NOTE | 2021-02-26 09:03 | PCM.SN.2 ---
- Free Text/Narrative Note: START OF DOCTOR EMAMIS DISCHARGE SUMMARY Date of Admission: February 25, 2021 Date of Discharge: 9:02 AM on February 26, 2021 Primary Diagnosis: Alcohol abuse with alcohol withdrawal Secondary Diagnosis: Alcoholic hepatitis Erythrocytosis Anxiety Hypomagnesemia Lice, status post treatment Hyperglycemia, likely acute phase reaction as her hemoglobin A1c is 5.1 Smoker Asthma Hypokalemia, status post treatment Consultations: None Condition on Discharge: Fair Disposition: The patient will require check of CMP 5 days post discharge for diagnosis of transaminitis likely secondary to alcoholic hepatitis The patient will be advised follow-up with her primary care physician or with a provider 7 days post discharge Discharge Medications: None END OF DOCTOR EMAMIS DISCHARGE SUMMARY
[2021-02-26 09:26] VITALS: BP 149/84; PULSE 89
== END 2021-02-26 12:30 | disposition home or self-care (01) | DRG 897 ==
LOC: DL.ED 09:38 → DL.MS 11:27
PROVIDERS: ADMIT Internal Medicine; ATTEND Internal Medicine
DX: F10.139 Alcohol abuse with withdrawal, unspecified (principal); K70.10 Alcoholic hepatitis without ascites; D75.1 Secondary polycythemia; F41.9 Anxiety disorder, unspecified; E83.42 Hypomagnesemia; R73.9 Hyperglycemia, unspecified; F17.210 Nicotine dependence, cigarettes, uncomplicated; J45.909 Unspecified asthma, uncomplicated; E87.6 Hypokalemia; B85.2 Pediculosis, unspecified; Z90.49 Acquired absence of other specified parts of digestive tract; Z20.822 Contact with and (suspected) exposure to COVID-19
CPT/HCPCS: 0240U; 36415; 80053; 80305-QW; 80307; 81001; 81025; 82150; 83036; 83690; 83735; 85025; 85610; 85730; 96365; 96375; 96376; 99285-25; A9270-GY; C9113; J2060; J2405; J3411; J3475; J3490; J7030; J7120

== ENCOUNTER 2023-05-27 14:24 | Emergency (ER) | payer MEDICAID ==
[2023-05-27] MEDS ORDERED: Sodium Chloride 0.9% 10 ML Syringe FLUSH PRN (14:25)
[2023-05-27 14:42] VITALS: BP 127/94; PULSE 76
[2023-05-27 14:43] LABS: BASOPHILS PERCENT AUTO 0.6 % (0.0-1.0); EOSINOPHILS PERCENT AUTO 1.1 % (1.0-3.0); HEMOGLOBIN 16.5 g/dL (12.0-16.0); LYMPHOCYTES PERCENT AUTO 12.1 % (20.5-50.1); MEAN CORPUSCULAR HEMOGLOBIN 30.3 pg (27.0-34.0); MEAN CORPUSCULAR VOLUME 91.7 fL (80-100); MONOCYTES PERCENT AUTO 9.2 % (2-8); PLATELET COUNT,PLT 280 10^3/uL (150-450); RED BLOOD CELL COUNT 5.45 10^6/uL (4.2-5.4); WHITE BLOOD CELL COUNT,WBC 10.6 10^3/uL (5.0-10.0)
[2023-05-27 15:02] LABS: APPEARANCE,URINE CLEAR (CLEAR); BILIRUBIN,URINE NEGATIVE (NEGATIVE); COLOR,URINE YELLOW (YELLOW); GLUCOSE,URINE NEGATIVE (NEGATIVE); KETONES,URINE NEGATIVE (NEGATIVE); LEUKOCYTE ESTERASE,URINE TRACE (NEGATIVE); NITRITE,URINE NEGATIVE (NEGATIVE); OCCULT BLOOD,URINE NEGATIVE (NEGATIVE); PH,URINE 6.5 (5.0-9.0); PROTEIN,URINE 30 (NEGATIVE); UROBILINOGEN,URINE 0.2 mg/dL (0.2-1.0)
[2023-05-27 15:04] LABS: AMPHETAMINES,URINE NEGATIVE (NEGATIVE); BARBITURATES,URINE NEGATIVE (NEGATIVE); BENZODIAZEPINE,URINE NEGATIVE (NEGATIVE); MDMA (ECSTASY), URINE NEGATIVE (NEGATIVE); METHADONE,URINE NEGATIVE (NEGATIVE); METHAMPHETAMINES,URINE NEGATIVE (NEGATIVE); OPIATES,URINE NEGATIVE (NEGATIVE); OXYCODONE,URINE NEGATIVE (NEGATIVE); PHENCYCLIDINE,URINE NEGATIVE (NEGATIVE); TCA,URINE NEGATIVE (NEGATIVE)
[2023-05-27 15:09] LABS: INR 0.9 (0.9-1.2); PROTHROMBIN TIME 9.7 SEC (9.0-12.0); PTT,PARTIAL THROMBOPLSTIN TIME 26.7 SEC (22.0-34.0)
[2023-05-27 15:11] LABS: EPITHELIAL CELLS,URINE MODERATE /HPF (NOT SEEN)
[2023-05-27 15:12] LABS: BACTERIA,URINE FEW /HPF (0-FEW/HPF); YEAST,URINE FEW /HPF (NOT SEEN)
[2023-05-27 15:13] LABS: RBC,URINE NOT SEEN /HPF (0-5); WBC,URINE 0-5 /HPF (0-5/HPF)
[2023-05-27] MEDS ORDERED: Sodium Chloride 0.9% 1,000 ML IV ONE (15:15)
[2023-05-27 15:17] LABS: A/G RATIO 0.9; ALANINE AMINOTRANSFERASE,ALT 32 U/L (14-59); ALBUMIN 3.8 g/dL (3.4-5.0); ALKALINE PHOSPHATASE 140 U/L (46-116); AMYLASE 21 U/L (25-115); ANION GAP 12.8 mEq/L (7-13); ASPARTATE AMNIOTRANSFERASE,AST 43 U/L (15-37); BILIRUBIN TOTAL 0.3 mg/dL (0.2-1.0); BLOOD UREA NITROGEN,BUN 4 mg/dL (7-18); BUN/CREATININE RATIO 8.2 (No establ ref range); C-REACTIVE PROTEIN 0.08 ng/dL (<=0.30); CALCIUM 8.6 mg/dL (8.5-10.1); CARBON DIOXIDE,CO2 29 mmol/L (21-32); CHLORIDE,CL 103 mmol/L (98-107); CREATININE 0.49 mg/dL (0.55-1.02); GLUCOSE RANDOM 96 mg/dL (70-99); LIPASE 71 U/L (16-77); MAGNESIUM 2.1 mg/dL (1.8-2.4); POTASSIUM,K 3.8 mmol/L (3.5-5.1); PROTEIN TOTAL,TP 8.1 g/dL (6.4-8.2); SODIUM,NA 141 mmol/L (136-145)
[2023-05-27 15:19] LABS: ESTIMATED GFR 113 mL/min (>=60)
[2023-05-27 15:20] LABS: ETHANOL BLOOD MEDICAL 522 mg/dL (0)
[2023-05-27] MEDS ORDERED: MVI, Adult with Vitamin K 10 ML, Folic Acid 1 MG, Thiamine 100 MG in Lactated Ringers 1... IV ONE ×4 (15:25)
== END 2023-05-27 17:54 ==
LOC: DL.ED 14:24
DX: F10.920 Alcohol use, unspecified with intoxication, uncomplicated (principal); R07.9 Chest pain, unspecified; J45.909 Unspecified asthma, uncomplicated
CPT/HCPCS: 36415; 71045; 80053; 80305-QW; 80307; 81001; 81025; 82150; 83605; 83690; 83735; 84145; 84484; 85025; 85610; 85730; 86140; 87086; 87088; 87186; 93005; 93010; 96365; 99284; 99285-25; J3411; J3490; J7030; J7120

== ENCOUNTER 2025-01-02 16:43 | Emergency (ER) | payer SELFPAY ==
[2025-01-02 17:09] LABS: APPEARANCE,URINE CLEAR (CLEAR); BILIRUBIN,URINE NEGATIVE (NEGATIVE); COLOR,URINE YELLOW (YELLOW); GLUCOSE,URINE NEGATIVE (NEGATIVE); KETONES,URINE NEGATIVE (NEGATIVE); LEUKOCYTE ESTERASE,URINE SMALL (NEGATIVE); NITRITE,URINE NEGATIVE (NEGATIVE); OCCULT BLOOD,URINE NEGATIVE (NEGATIVE); PROTEIN,URINE NEGATIVE (NEGATIVE); UROBILINOGEN,URINE 0.2 mg/dL (0.2-1.0)
[2025-01-02 17:19] LABS: BACTERIA,URINE OCCASIONAL /HPF (0-FEW/HPF); EPITHELIAL CELLS,URINE FEW /HPF (NOT SEEN); RBC,URINE NOT SEEN /HPF (0-5)
[2025-01-02 17:20] LABS: TRICHOMONAS,URINE PRESENT /HPF (NOT SEEN)
[2025-01-02] MEDS ORDERED: Take Home: metroNIDAZOLE 250 MG Tab, 8 Tab Pack PO ONE (17:22)
[2025-01-02] MEDS: Take Home: Ciprofloxacin HCl 500 MG, 6 Tab Pack PO ONE (17:35)
[2025-01-02 17:48] VITALS: BP 128/97; PULSE 77
[2025-01-05 19:21] LABS: C.TRACHOMATIS BY TMA Negative (Negative); M GENITALIUM Negative (Negative); M GENITALIUM SOURCE Urine; N.GONORRHOEAE BY TMA Negative (Negative); SOURCE Urine
== END 2025-01-02 17:47 | disposition home or self-care (01) ==
LOC: DL.ED 16:43
DX: N30.00 Acute cystitis without hematuria (principal); A59.9 Trichomoniasis, unspecified; J45.909 Unspecified asthma, uncomplicated; Z90.49 Acquired absence of other specified parts of digestive tract
CPT/HCPCS: 81001; 87086; 87210; 87491; 87563; 87591; 99284; 99285; A9270-GY

== ENCOUNTER 2025-01-07 17:48 | Emergency (ER) | payer MEDICAID, OTHER ==
[~2025-01-07 17:48] MED LIST: Sodium Chloride 0.9% 10 ML Syringe FLUSH PRN
[2025-01-07 17:57] LABS: BASOPHILS PERCENT AUTO 0.6 % (0.0-1.0); EOSINOPHILS PERCENT AUTO 2.3 % (1.0-3.0); HEMATOCRIT 38.5 % (37.0-47.0); HEMOGLOBIN 13.1 g/dL (12.0-16.0); MEAN CORPUSCULAR HEMOGLOBIN 29.4 pg (27.0-34.0); MEAN CORPUSCULAR VOLUME 86.5 fL (80-100); MONOCYTES PERCENT AUTO 9.3 % (2-8); NEUTROPHILS PERCENT AUTO 73.8 % (42.2-75.2); PLATELET COUNT,PLT 262 10^3/uL (150-450); RED BLOOD CELL COUNT 4.45 10^6/uL (4.2-5.4); WHITE BLOOD CELL COUNT,WBC 11.6 10^3/uL (5.0-10.0)
[2025-01-07 17:59] LABS: APPEARANCE,URINE CLEAR (CLEAR); BILIRUBIN,URINE NEGATIVE (NEGATIVE); COLOR,URINE YELLOW (YELLOW); GLUCOSE,URINE NEGATIVE (NEGATIVE); KETONES,URINE NEGATIVE (NEGATIVE); LEUKOCYTE ESTERASE,URINE TRACE (NEGATIVE); NITRITE,URINE NEGATIVE (NEGATIVE); OCCULT BLOOD,URINE NEGATIVE (NEGATIVE); PH,URINE 5.5 (5.0-9.0); PROTEIN,URINE NEGATIVE (NEGATIVE); UROBILINOGEN,URINE 0.2 mg/dL (0.2-1.0)
[2025-01-07] MEDS: Thiamine 100 MG in Sodium Chloride 0.9% 100 ML IV ONE (18:07)
[2025-01-07 18:10] LABS: BACTERIA,URINE OCCASIONAL /HPF (0-FEW/HPF); EPITHELIAL CELLS,URINE RARE /HPF (NOT SEEN); MUCUS,URINE RARE /LPF (NOT SEEN); RBC,URINE NOT SEEN /HPF (0-5); WBC,URINE 0-5 /HPF (0-5/HPF)
[2025-01-07 18:17] LABS: A/G RATIO 1.2; ALBUMIN 3.8 g/dL (3.4-5.0); ANION GAP 11.5 mEq/L (7-13); BILIRUBIN TOTAL 0.5 mg/dL (0.2-1.0); BUN/CREATININE RATIO 13.8 (No establ ref range); CALCIUM 9.1 mg/dL (8.5-10.1); CREATININE 1.23 mg/dL (0.55-1.02); EST CRCL DRUG DOSING (CG) 43.25 mL/min; MAGNESIUM 1.7 mg/dL (1.8-2.4); POTASSIUM,K 3.5 mmol/L (3.5-5.1)
[2025-01-07 18:18] LABS: INR 0.9 (0.9-1.2); PROTHROMBIN TIME 9.8 SEC (9.0-12.0)
[2025-01-07] MEDS ORDERED: Magnesium Sulfate/D5W 1 GM/100 ML BAG IV ONE (18:21)
[2025-01-07] MEDS: Magnesium Sulfate/D5W 1 GM IV ONE (18:28)
[2025-01-07] MEDS: Sodium Chloride 0.9% 1,000 ML IV ONE (18:28)
[2025-01-07 20:24] VITALS: BP 154/83; PULSE 66
== END 2025-01-07 20:10 | disposition home or self-care (01) ==
LOC: DL.ED 17:48
DX: E87.1 Hypo-osmolality and hyponatremia (principal); N18.31 Chronic kidney disease, stage 3a; J45.909 Unspecified asthma, uncomplicated; Z90.49 Acquired absence of other specified parts of digestive tract
CPT/HCPCS: 36415; 80053; 80307; 81001; 83735; 84484; 85025; 85610; 87086; 93005; 96365; 96367; 99285; J3411; J3475; J7030